=== PATIENT | female | born 1980 | race Caucasian/White ===

== ENCOUNTER 2016-10-05 21:28 | Emergency (ER) | payer BC ==
[2016-10-05 21:44] VITALS: BMI 35.4
[2016-10-05] MEDS ORDERED: ACETAMINOPHEN INJECTION 100 ML IVPB ONE (21:47)
[2016-10-05] MEDS ORDERED: ACETAMINOPHEN 1000 MG/100 ML VIAL (NON FORMULARY) IVPB ONE (21:47)
[2016-10-05] MEDS ORDERED: morphine CARPU-JECT 4 MG/1 ML DISP.SYRIN IVPUSH ONE (21:47)
[2016-10-05] MEDS ORDERED: SODIUM CHLORIDE 1,000 ML IV STA (21:47)
[2016-10-05] MEDS ORDERED: AMPICILLIN NA/SULBACTAM NA 3 GM in SODIUM CHLORIDE 100 ML IVPB ONE (21:47)
[2016-10-05] MEDS ORDERED: AMPICILLIN NA/SULBACTAM NA 3 GM VIAL ONE (21:48)
--- NOTE | 2016-10-05 21:53 | PDOC ---
History of Present Illness - General Chief Complaint: Pain Stated Complaint: FEVER & FACIAL SWELLING Time Seen by Provider: 10/05/16 21:30 History Source: Patient Exam Limitations: No Limitations - History of Present Illness Initial Comments: 10/05/16 21:53 This patient is an otherwise healthy 36-year-old female presented to emergency department with a complaint of right facial swelling and fever. Patient states she was in her usual state of health until approximately 2 days ago when she noted right mandibular pain Hematocrit of the past day and a half she's noted right facial swelling. Pain is rated 9/10, radiation throughout her head. She has noted fever. Prior to coming here temperature 103. She took Motrin 800. Temperature still elevated. Patient has previously required root canal PMH: Denies PSH: C section Meds: denies ALL: Moxifloxacin --> facial swelling and rash Social: Denies drug use GENERAL/CONSTITUTIONAL: No: fever, chills, weakness, loss of appetite. HEAD, EYES, EARS, NOSE AND THROAT: No: change in vision, ear pain, discharge, sore throat, throat swelling. SKIN: No: facial erythema NEUROLOGIC: Yes: headache and facial pain GENERAL: The patient is in no acute distress, pt is diaphoretic HEAD: Left facial swelling EYES: PERRLA, EOMI, sclera anicteric, conjunctiva clear. ENT: Tooth #30 low, exposed dentin, very tender to palpation NECK: (+) no lymph adenopathy SKIN: Warm, Dry, normal turgor, no rashes or lesions noted. Past History - Past Medical History Allergies/Adverse Reactions: Allergies Allergy/AdvReac Type Severity Reaction Status Date / Time moxifloxacin HCl Allergy Intermediate Hives Verified 10/05/16 21:38 [From Avelox] Home Medications: Ambulatory Orders Amoxicillin - [Amoxicillin 500mg Capsule -] 500 mg PO TID #30 capsule 11/25/11 Amoxicillin/Potassium Clav [Augmentin 875-125 Tablet] 1 each PO BID #14 tablet 10/05/16 Oxycodone HCl/Acetaminophen [Percocet 5-325 mg Tablet -] 1 tab PO Q6H PRN #12 tablet MDD 4 10/05/16 Disorders: Yes (PCOS) - Immunization History Td Vaccination: Yes TDAP Vaccination: Yes Immunization Up to Date: Yes - Psycho/Social/Smoking Cessation Hx Anxiety: No Suicidal Ideation: No Smoking Status: Yes Smoking History: Current every day smoker Years of Tobacco Use: 0 Number of Cigarettes Smoked Daily: 10 Cigars Per Day: 0 Information on smoking cessation initiated: Yes 'Breaking Loose' booklet given: 10/05/16 Hx Alcohol Use: Yes (OCCASIONALLY) Drug/Substance Use Hx: No Substance Use Type: None *Physical Exam - Vital Signs Last Vital Signs Temp Pulse Resp BP Pulse Ox 101.1 F H 146 H 16 155/97 99 10/05/16 21:30 10/05/16 21:30 10/05/16 21:30 10/05/16 21:30 10/05/16 21:30 ED Treatment Course - LABORATORY CBC & Chemistry Diagram: 10/05/16 21:50 10/05/16 21:50 Medical Decision Making - Medical Decision Making 10/05/16 23:17 Laboratory Tests 10/05/16 10/05/16 21:50 21:50 WBC 6.7 Hgb 14.3 Hct 42.7 Plt Count 215 Neutrophils % 85.0 H Serum , Qual Negative 10/05/16 23:21 Laboratory Tests 10/05/16 21:50 Sodium 132 L Potassium 3.8 Chloride 98 Carbon Dioxide 23 BUN 11 Creatinine 0.8 Random Glucose 196 H PT given a dose of unsyn in the ER Will discharge on Augmentin and Percocet for pain pt told that her condition will not improve without a dental procedure, likely root canal Pt does not have a dentist I have given her the contact information for the dental Urgent Care Pt states she will follow up with [facility] *DC/Admit/Observation/Transfer Diagnosis at time of Disposition: Periapical abscess - Discharge Dispostion Disposition: HOME Condition at time of disposition: Stable Admit: No - Prescriptions Prescriptions: Amoxicillin/Potassium Clav [Augmentin 875-125 Tablet] 1 each PO BID #14 tablet Oxycodone HCl/Acetaminophen [Percocet 5-325 mg Tablet -] 1 tab PO Q6H PRN #12 tablet MDD 4 PRN Reason: Severe Pain - Patient Instructions Printed Discharge Instructions: Tooth Abscess, DI for Tooth Decay Additional Instructions: Neva Thank you for coming in to the ER today Please take antibiotics and pain medications as prescribed Please follow up within 24 hours with a dentist, you are likely to need additional work to drain what appears to be an abscess Please return to the ER immediately for increased facial swelling or swelling in any other part of your mouth or neck, increased pain despite pain medications , continued fevers despite antibiotics - Post Discharge Activity Work/School Note: Back to Work
[2016-10-05] MEDS ORDERED: morphine CARPU-JECT 4 MG/1 ML DISP.SYRIN ONE (21:56)
[2016-10-05 22:10] LABS: BASOPHIL 0.1 % (0-2.0); EOSINOPHIL 0.2 % (0-4.5); MCH 29.4 pg (25.7-33.7); MCHC 33.4 g/dl (32.0-36.0); MEAN PLT VOLUME 9.1 fl (7.5-11.1); PLATELET COUNT 215 K/MM3 (134-434); RDW 14.3 % (11.6-15.6); WHITE BLOOD COUNT 6.7 K/mm3 (4.0-10.8)
[2016-10-05 22:27] LABS: ALBUMIN 4.1 g/dl (3.5-5.0); ALK PHOS 72 U/L (32-92); ANION GAP 11 (8-16); BILIRUBIN,TOTAL 0.3 mg/dl (0.2-1.0); CALCIUM 9.2 mg/dl (8.4-10.2); CO2 23 mmol/L (22-28); CREATININE 0.8 mg/dl (0.6-1.3); GLUCOSE,RANDOM 196 mg/dl (74-106); SGOT/AST 24 U/L (10-42); SGPT/ALT 19 U/L (10-40); TOT PROT 7.9 g/dl (6.4-8.3)
[2016-10-05 23:25] VITALS: BP 140/91; PULSE 114; TEMP 98.6
== END 2016-10-05 23:29 | disposition home or self-care (01) ==
LOC: FER 21:28
PROC: 3E033NZ Introduction of Analgesics, Hypnotics, Sedatives into Peripheral Vein, Percutaneous Approach (ICD-10-PCS; principal; 2016-10-05)
PROC: 3E03329 Introduction of Other Anti-infective into Peripheral Vein, Percutaneous Approach (ICD-10-PCS; 2016-10-05)
PROC: 3E0337Z Introduction of Electrolytic and Water Balance Substance into Peripheral Vein, Percutaneous Approach (ICD-10-PCS; 2016-10-05)
DX: K04.7 Periapical abscess without sinus (principal); F17.210 Nicotine dependence, cigarettes, uncomplicated
CPT/HCPCS: 36415; 80053; 84703; 85025; 87040; 99282-25